=== PATIENT | female | born 1990 | race Caucasian/White ===

== ENCOUNTER 2020-10-10 05:59 | Emergency (ER) | payer MEDICAID ==
[~2020-10-10] VITALS: Ht 157.5 cm; Wt 95.0 kg
[2020-10-10 08:48] VITALS: BP 100/61
== END 2020-10-10 08:49 | disposition home or self-care (01) ==
LOC: ER 05:59
DX: F41.9 Anxiety disorder, unspecified (principal); R00.2 Palpitations; L50.9 Urticaria, unspecified; Z98.890 Other specified postprocedural states
CPT/HCPCS: 93005; 99283

== ENCOUNTER 2021-02-12 23:16 | Emergency (ER) | payer MEDICAID ==
[~2021-02-12] VITALS: Ht 157.5 cm; Wt 99.8 kg
[2021-02-13] MEDS ORDERED: LORAZEPAM 0.5MG TABLET PO ONE (03:45)
[2021-02-13 03:56] LABS: BASOPHILS % 0.9 % (0.0-2.0); EOSINOPHILS % 2.6 % (0.0-5.0); HEMATOCRIT. 38.8 % (36.0-48.0); HEMOGLOBIN. 12.8 g/dL (12.0-16.0); LYMPHOCYTES % 38.8 % (20.0-50.0); MEAN CORPUSCULAR HEMOGLOBIN 26.1 pg (28.0-32.0); MEAN CORPUSCULAR VOLUME 79.1 fL (81.0-99.0); MEAN PLATELET VOLUME 8.9 fl (7.4-10.4); MONOCYTES % 7.7 % (2.0-8.0); PLATELET 275 x1000/uL (130-400); RED BLOOD CELL COUNT 4.91 mill/uL (4.2-5.4)
[2021-02-13 04:03] LABS: CHLORIDE 105 mEq/L (98-107)
[2021-02-13 04:11] LABS: HCG SCREEN NEGATIVE
[2021-02-13 08:08] VITALS: BP 116/92
== END 2021-02-13 08:09 | disposition home or self-care (01) ==
LOC: ER 23:16
DX: R00.2 Palpitations (principal); F41.9 Anxiety disorder, unspecified; E11.9 Type 2 diabetes mellitus without complications; Z98.890 Other specified postprocedural states
CPT/HCPCS: 36415; 71045; 80053; 84484; 84703; 85025; 99285

== ENCOUNTER 2022-02-11 04:18 | Emergency (ER) | payer MEDICAID ==
[~2022-02-11] VITALS: Ht 157.5 cm; Wt 95.0 kg
[2022-02-11] MEDS ORDERED: LORAZEPAM 0.5MG TABLET PO ONE (05:15)
[2022-02-11 05:20] LABS: BASOPHILS % 0.4 % (0.0-2.0); EOSINOPHILS % 1.5 % (0.0-5.0); HEMATOCRIT. 39.6 % (36.0-48.0); HEMOGLOBIN. 12.9 g/dL (12.0-16.0); MEAN CORPUSCULAR HEMOGLOBIN 28.7 pg (28.0-32.0); MEAN CORPUSCULAR VOLUME 87.9 fL (81.0-99.0); MEAN PLATELET VOLUME 8.5 fl (7.4-10.4); MONOCYTES % 7.4 % (2.0-8.0); NEUTROPHILS % 70.7 % (40.0-76.0); PLATELET 229 x1000/uL (130-400); RED CELL DISTRIBUTION WIDTH 13.4 % (11.6-14.6)
[2022-02-11 05:26] LABS: CHLORIDE 105 mEq/L (98-107)
[2022-02-11 06:06] LABS: HCG SCREEN NEGATIVE
[2022-02-11 06:30] VITALS: BP 94/59
== END 2022-02-11 06:50 | disposition home or self-care (01) ==
LOC: ER 04:18 → EDBD 04:18 → EDUNIT# 04:18 → ER 06:50
DX: R00.2 Palpitations (principal); R10.13 Epigastric pain; E11.9 Type 2 diabetes mellitus without complications
CPT/HCPCS: 36415; 80053; 82962; 84703; 85025; 93005; 99284